=== PATIENT | female | born 1995 | race Caucasian/White ===

== ENCOUNTER 2016-11-17 10:19 | Emergency (ER) | payer OTHER ==
--- NOTE | 2016-11-17 10:54 | ER Document Report ---
ED Medical Screen (RME) - General Chief Complaint: Passed Out Prior to Arrival Stated Complaint: HEADACHE, PASSED OUT THIS AM Time Seen by Provider: 11/17/16 10:52 Notes: Patient presents stating that this morning she was in the process of having a bowel movement when she became very lightheaded and fell forward and struck the right side of her head. She states she never totally lost consciousness. She has not had any previous episodes of syncope. She is 13 weeks . She is a . No abdominal pain no bleeding or vaginal discharge. No problems with this so far. She states she is here visiting from [place] Her DOORPERSON OR LUGGAGE PORTER is in [place]. She states she had an ultrasound at 9 weeks that show that everything was "okay". She states she has been having some occipital headaches every day for the last 2 weeks. TRAVEL OUTSIDE OF THE [place] IN LAST 30 DAYS: No - Related Data Allergies/Adverse Reactions: No Known Allergies Allergy (Unverified 11/17/16 10:34) Past Medical History - Social History Chew tobacco use (# tins/day): No Frequency of alcohol use: None Drug Abuse: None Renal/ Medical History: Denies: Hx Peritoneal Dialysis Surgical Hx: Negative Physical Exam - Vital signs Vitals: Temp Pulse BP Pulse Ox 97.9 F 131 H 110/69 98 11/17/16 10:33 11/17/16 10:33 11/17/16 10:33 11/17/16 10:33 Course - Vital Signs Vital signs: Temp Pulse Resp BP Pulse Ox 97.9 F 125 H 18 110/69 98 11/17/16 10:34 11/17/16 10:34 11/17/16 10:34 11/17/16 10:34 11/17/16 10:34
[2016-11-17 11:26] LABS: ABSOLUTE BASOPHILS # (AUTO) 0.1 10^3/uL (0.0-0.2); ABSOLUTE LYMPHOCYTES (AUTO) 1.3 10^3/uL (0.5-4.7); ABSOLUTE MONOCYTES (AUTO) 0.5 10^3/uL (0.1-1.4); ABSOLUTE NEUT (AUTO) 8.6 10^3/uL (1.7-8.2); BASOPHILS % (AUTO) 0.5 % (0-2); EOSINOPHILS % (AUTO) 0.3 % (0-6); HEMATOCRIT 40.6 % (36.0-47.0); HGB HCT DIFFERENCE 1.4; LYMPHOCYTES % (AUTO) 12.8 % (13-45); MEAN CORPUSCULAR HEMOGLOBIN 30.9 pg (27.0-33.4); MEAN CORPUSCULAR HGB CONC 34.5 g/dL (32.0-36.0); MEAN CORPUSCULAR VOLUME 90 fl (80-97); RED BLOOD COUNT 4.53 10^6/uL (3.72-5.28); RED CELL DISTRIBUTION WIDTH 13.5 % (11.5-14.0); SEGMENTED NEUTROPHILS % (AUTO) 81.4 % (42-78); WHITE BLOOD COUNT 10.5 10^3/uL (4.0-10.5)
[2016-11-17 11:39] LABS: APPEARANCE,URINE SLIGHTLY-CLOUDY; BILIRUBIN,URINE NEGATIVE (NEGATIVE); GLUCOSE, URINE NEGATIVE (NEGATIVE); KETONES,URINE TRACE mg/dL (NEGATIVE); LEUKOCYTE ESTERASE,URINE NEGATIVE (NEGATIVE); NITRITE,URINE NEGATIVE (NEGATIVE); PROTEIN,URINE NEGATIVE (NEGATIVE); URINE SPECIFIC GRAVITY 1.011; UROBILINOGEN,URINE NEGATIVE mg/dL (<2.0)
[2016-11-17 11:47] LABS: ALANINE AMINOTRANSFERASE 22 U/L (9-52); ALBUMIN 4.4 g/dL (3.5-5.0); ALKALINE PHOSPHATASE 52 U/L (38-126); ANION GAP 11 (5-19); ASPARTATE AMINO TRANSFERASE 17 U/L (14-36); BILIRUBIN,DIRECT 0.3 mg/dL (0.0-0.4); BILIRUBIN,TOTAL 0.7 mg/dL (0.2-1.3); BLOOD UREA NITROGEN 7 mg/dL (7-20); CALCIUM 10.6 mg/dL (8.4-10.2); CARBON DIOXIDE 26 mmol/L (22-30); CHLORIDE 100 mmol/L (98-107); CREATININE RESULT 0.49 mg/dL (0.52-1.25); GLUCOSE 86 mg/dL (75-110); POTASSIUM 4.5 mmol/L (3.6-5.0); TOTAL PROTEIN 7.4 g/dL (6.3-8.2)
--- NOTE | 2016-11-17 12:13 | ER Document Report ---
ED Syncope and Near Syncope - General Chief Complaint: Passed Out Prior to Arrival Stated Complaint: HEADACHE, PASSED OUT THIS AM Time Seen by Provider: 11/17/16 10:52 Mode of Arrival: Ambulatory Information source: Patient Notes: Patient is a 21-year-old approximately 13 weeks who presents to the ER today for possible Syncopal episode while sitting on toilet attempting to have a bowel movement prior to arrival. Patient states that she was bearing down because she is constipated and passed out, hitting the right side of her head on the floor. patient states that she recalls the entire event and does not think that she truly lost consciousness. Patient admits to headaches 2 weeks, all over her head. Patient is taking gummy vitamins because she cannot take pills, she states that she gets nauseated when she tries to swallow pills. She is attempting to take Colace but also gets nauseated with that. She denies any fever, chills, back pain, abdominal pain, vaginal bleeding or vaginal discharge. She states that she feels fine at this time. TRAVEL OUTSIDE OF THE [place] IN LAST 30 DAYS: No - Related Data Allergies/Adverse Reactions: No Known Allergies Allergy (Unverified 11/17/16 10:34) Home Medications: Current Home Medications Pnv No.95/Ferrous Fum/Folic AC [ Multivitamin Tablet] 1 each PO DAILY [History] Past Medical History - General Information source: Patient - Social History Smoking Status: Never Smoker Chew tobacco use (# tins/day): No Frequency of alcohol use: None Drug Abuse: None Family History: Reviewed & Not Pertinent Patient has suicidal ideation: No Patient has homicidal ideation: No Renal/ Medical History: Denies: Hx Peritoneal Dialysis Surgical Hx: Negative Review of Systems - Review of Systems Constitutional: No symptoms reported EENT: No symptoms reported Cardiovascular: No symptoms reported Respiratory: No symptoms reported Gastrointestinal: No symptoms reported Genitourinary: No symptoms reported Female Genitourinary: No symptoms reported Musculoskeletal: No symptoms reported Skin: No symptoms reported Hematologic/Lymphatic: No symptoms reported Neurological/Psychological: See HPI Physical Exam - Vital signs Vitals: Temp Pulse BP Pulse Ox 97.9 F 131 H 110/69 98 11/17/16 10:33 11/17/16 10:33 11/17/16 10:33 11/17/16 10:33 - Notes Notes: PHYSICAL EXAMINATION: GENERAL: Well-appearing and in no acute distress. HEAD: Atraumatic, normocephalic. EYES: Pupils equal round and reactive to light, extraocular movements intact, sclera anicteric, conjunctiva are normal. ENT: ear canals without erythema or foreign body, TMs pearly marina with good bony landmarks, nares patent, oropharynx clear without exudates. Moist mucous membranes. NECK: Normal range of motion, supple without lymphadenopathy LUNGS: CTAB and equal. No wheezes rales or rhonchi. HEART: Regular rate and rhythm without murmurs ABDOMEN: Soft, no tenderness. No guarding, no rebound BACK: no vertebral tenderness, normal ROM GI/: no CVA tenderness EXTREMITIES: Normal range of motion, no pitting edema. No cyanosis. NEUROLOGICAL: Cranial nerves grossly intact. Normal sensory/motor exams. PSYCH: Normal mood, normal affect. SKIN: Warm, Dry, normal turgor, no rashes or lesions noted Course - Re-evaluation Re-evalutation: 11/17/16 12:11 Patient looks and feels well, lab work unremarkable today. Patient will be discharged with nausea medication to attempt to try to swallow pills for Colace and vitamins with iron in them. - Vital Signs Vital signs: Temp Pulse Resp BP Pulse Ox 97.6 F 76 16 105/63 99 11/17/16 12:23 11/17/16 12:23 11/17/16 12:23 11/17/16 12:23 11/17/16 12:23 - Laboratory Result Diagrams: 11/17/16 10:57 11/17/16 10:57 Laboratory results interpreted by me: 11/17/16 11/17/16 11/17/16 10:57 10:57 10:57 Seg Neutrophils % 81.4 H Lymphocytes % 12.8 L Absolute Neutrophils 8.6 H Creatinine 0.49 L Calcium 10.6 H Urine Ketones TRACE H Discharge - Discharge Clinical Impression: Syncopal episodes Qualifiers: Syncope type: unspecified Qualified Code(s): R55 - Syncope and collapse Condition: Stable Disposition: HOME, SELF-CARE Additional Instructions: Return immediately for any new or worsening symptoms. Follow up with primary care provider, call tomorrow to make followup appointment. Prescriptions: Ondansetron [Zofran Odt 4 mg Tablet] 1 - 2 tab PO Q4H PRN #30 tab.rapdis PRN Reason: For Nausea/Vomiting
[2016-11-17 12:24] VITALS: BP 105/63
--- NOTE | 2016-11-17 16:44 | EKG REPORT ---
SEVERITY:- NORMAL ECG - SINUS RHYTHM : Confirmed by: Ina Mondragon MD 17-Nov-2016 16:43:50
== END 2016-11-17 12:30 | disposition home or self-care (01) ==
LOC: ER 10:19
DX: O26.899 Other specified pregnancy related conditions, unspecified trimester (principal); R55 Syncope and collapse; R51 Headache; O99.619 Diseases of the digestive system complicating pregnancy, unspecified trimester; K59.00 Constipation, unspecified; Z3A.00 Weeks of gestation of pregnancy not specified
CPT/HCPCS: 36415; 80053; 81001; 85025; 93005; 93010; 99284